=== PATIENT | male | born 1945 | race Caucasian/White ===

== ENCOUNTER 2020-06-09 16:49 | Inpatient (IN) ==
[2020-06-09 20:14] LABS: BILIRUBIN,URINE NEGATIVE (NEGATIVE); BLOOD/HEMOGLOBIN,URINE 3+ (NEGATIVE); GLUCOSE, URINE NEGATIVE (NEGATIVE); KETONES,URINE NEGATIVE (NEGATIVE); LEUKOCYTE ESTERASE ,URINE 1+ (NEGATIVE); NITRITES,URINE NEGATIVE (NEGATIVE); PH,URINE 6.5 (5.0 - 8.0); PROTEIN,URINE 2+ (NEGATIVE); UROBILINOGEN,URINE 1+ (NORMAL)
[2020-06-09 20:17] LABS: APPEARANCE,URINE HAZY (CLEAR); COLOR,URINE YELLOW (YELLOW)
[2020-06-09 20:18] LABS: ABG BASE EXCESS 10.9 mmol/L (-2.0-2.0)
[2020-06-09 20:21] LABS: ABG ALLEN TEST POS; ABG HCO3 37.2 mmol/L (22-26)
[2020-06-09 20:22] LABS: BACTERIA,URINE TRACE /HPF (NEGATIVE); MUCUS,URINE FEW /HPF (NEGATIVE); SQUAMOUS EPITHELIAL CELL,UR RARE /HPF (NEGATIVE)
[2020-06-09] MEDS ORDERED: Atrovent NEB TX 0.02% ONE (20:26)
[2020-06-09 20:38] LABS: BASOPHILS % (AUTO) 0.3 % (0.2-1.0); EOSINOPHILS # (AUTO) 0.3 x10^3/uL (0.0-0.2); EOSINOPHILS % (AUTO) 2.4 % (0.9-2.9); HEMATOCRIT 30.1 % (42.0-54.0); HEMOGLOBIN 9.5 g/dL (13.5-18.0); LYMPHOCYTES # (AUTO) 1.3 X10^3/uL (1.3-2.9); LYMPHOCYTES % (AUTO) 8.6 % (21.0-51.0); MEAN CORPUSCULAR HEMOGLOBIN 27.1 pg (27.0-34.0); MEAN CORPUSCULAR HGB CONC 31.4 g/dL (33.0-35.0); MEAN CORPUSCULAR VOLUME 86.1 fL (80.0-100.0); MEAN PLATELET VOLUME 8.3 fL (7.4-11.0); MONOCYTES # (AUTO) 0.8 x10^3/uL (0.3-0.8); MONOCYTES % (AUTO) 5.7 % (0.0-13.0); NEUTROPHILS # (AUTO) 12.2 x10^3/uL (2.2-4.8); PLATELET COUNT 186 X10^3/uL (150.0-450.0); RED CELL DISTRIBUTION WIDTH 20.7 % (11.6-16.5); WHITE BLOOD COUNT 14.7 X10^3/uL (3.6-10.0)
--- NOTE | 2020-06-09 20:51 | RAD ---
CHEST, 1 VIEWHISTORY: SOBStudy: Single view of the chest.Comparison:February 01, 2020Findings:Cardiomegaly. Mild increase in prominence of bilateral low lung volumes with markedly increased interstitial markings. Osseous structures demonstrate no acute abnormality.IMPRESSION:1. Increased thickening and prominence of patient's bilateral chronic lung disease which may represent a superimposed infection.Electronically signed by: KRISH BARKER (Jun 09, 2020 20:50:22)
[2020-06-09 20:55] LABS: ALANINE AMINOTRANSFERASE 42 Units/L (12-78); ALBUMIN 2.4 g/dL (3.4-5.0); ALKALINE PHOSPHATASE 80 Units/L (46-116); ASPARTATE AMINO TRANSFERASE 29 Units/L (15-37); BLOOD UREA NITROGEN 15 mg/dL (7-18); CALCIUM 8.2 mg/dL (8.5-10.1); CARBON DIOXIDE 34.9 mmol/L (21-32); CHLORIDE 104 mmol/L (98-107); COR CA(FOR HYPOALB) 9.5 mg/dL (8.5-10.1); COR NA(FOR HYPERGLY) 143 mmol/L (136-145); CREATINE KINASE 175 Units/L (39-308); CREATINE KINASE MB 1.8 ng/mL (0-4.0); CREATININE 1.37 mg/dL (0.70-1.30); SODIUM 142 mmol/L (136-145); TOTAL PROTEIN 6.3 g/dL (6.4-8.2); TROPONIN I 0.04 ng/mL (0-1.5); eGFR NON BLACK RACES 54 (>60)
[2020-06-09] MEDS ORDERED: PULMICORT NEB TX 0.5 MG NEB ONE (20:58)
[2020-06-09] MEDS: Atrovent NEB TX 0.02% NEB SCH (20:59)
[2020-06-09] MEDS: PULMICORT NEB TX 0.5 MG NEB SCH (20:59)
[2020-06-09 21:15] LABS: HYPOCHROMASIA SLIGHT; PLATELET MORPHOLOGY COMMENT NORMAL (NORMAL)
[2020-06-09 21:16] LABS: ANISOCYTOSIS 1+; POIKILOCYTOSIS SLIGHT
[2020-06-10] MEDS: Atrovent NEB TX 0.02% NEB SCH ×4 (00:17→16:56)
[2020-06-10] MEDS: ZITHROMAX TAB 250 MG PO SCH ×2 (00:18→21:09)
[2020-06-10] MEDS: ROCEPHIN VIAL 1 GRAM 1 G in NS 100 ML IV + SPIKE MINIBAG* 100 ML IV SCH ×2 (00:18→21:10)
[2020-06-10] MEDS ORDERED: REMERON PO SCH (00:30)
[2020-06-10] MEDS: MELATONIN PO SCH ×2 (00:39→21:08)
[2020-06-10] MEDS: PERCOCET TAB 5/325 MG PO PRN ×3 (00:40→20:14)
[2020-06-10] MEDS ORDERED: PHARMACY CONSULT LTC MEDICATIONS XX SCH (01:00)
[2020-06-10 05:20] LABS: CREATINE KINASE MB 1.1 ng/mL (0-4.0); TROPONIN I 0.05 ng/mL (0-1.5)
[2020-06-10] MEDS: LASIX IVP SCH ×2 (08:39→16:39)
[2020-06-10] MEDS ORDERED: PROTONIX TAB 40 MG PO SCH (09:00)
[2020-06-10] MEDS ORDERED: FOLIC ACID TAB 1 MG PO SCH (09:00)
[2020-06-10] MEDS ORDERED: GUAIFENESIN 1200 MG PO SCH (09:00)
[2020-06-10] MEDS ORDERED: ELIQUIS PO SCH (09:00)
[2020-06-10] MEDS ORDERED: NAMENDA TAB 10 MG PO SCH (09:00)
[2020-06-10] MEDS ORDERED: ARICEPT TAB 10 MG PO SCH (09:00)
[2020-06-10 09:04] LABS: BASOPHILS % (AUTO) 0.1 % (0.2-1.0); EOSINOPHILS # (AUTO) 0.4 x10^3/uL (0.0-0.2); EOSINOPHILS % (AUTO) 3.5 % (0.9-2.9); HEMATOCRIT 28.8 % (42.0-54.0); LYMPHOCYTES # (AUTO) 1.3 X10^3/uL (1.3-2.9); LYMPHOCYTES % (AUTO) 10.6 % (21.0-51.0); MEAN CORPUSCULAR HEMOGLOBIN 26.7 pg (27.0-34.0); MEAN CORPUSCULAR HGB CONC 31.3 g/dL (33.0-35.0); MEAN CORPUSCULAR VOLUME 85.3 fL (80.0-100.0); MEAN PLATELET VOLUME 8.1 fL (7.4-11.0); MONOCYTES % (AUTO) 8.4 % (0.0-13.0); NEUTROPHILS # (AUTO) 9.2 x10^3/uL (2.2-4.8); NEUTROPHILS % (AUTO) 77.4 % (42.0-75.0); PLATELET COUNT 187 X10^3/uL (150.0-450.0); RED BLOOD COUNT 3.38 X10^6/uL (4.7-6.0); RED CELL DISTRIBUTION WIDTH 20.9 % (11.6-16.5); WHITE BLOOD COUNT 11.8 X10^3/uL (3.6-10.0)
[2020-06-10 09:13] LABS: ANISOCYTOSIS 1+; PLATELET MORPHOLOGY COMMENT NORMAL (NORMAL)
[2020-06-10 09:15] LABS: ALANINE AMINOTRANSFERASE 37 Units/L (12-78); ALBUMIN 2.2 g/dL (3.4-5.0); ALKALINE PHOSPHATASE 74 Units/L (46-116); ASPARTATE AMINO TRANSFERASE 23 Units/L (15-37); BLOOD UREA NITROGEN 11 mg/dL (7-18); CALCIUM 8.1 mg/dL (8.5-10.1); CARBON DIOXIDE 35.1 mmol/L (21-32); CHLORIDE 105 mmol/L (98-107); COR CA(FOR HYPOALB) 9.5 mg/dL (8.5-10.1); COR NA(FOR HYPERGLY) 142 mmol/L (136-145); SODIUM 142 mmol/L (136-145); eGFR NON BLACK RACES > 60 (>60)
[2020-06-10] MEDS: PULMICORT NEB TX 0.5 MG NEB SCH ×2 (09:34→20:58)
[2020-06-10 09:40] LABS: ABG BASE EXCESS 12.1 mmol/L (-2.0-2.0)
[2020-06-10 09:41] LABS: ABG HCO3 38.2 mmol/L (22-26)
[2020-06-10 09:42] LABS: HEMOGLOBIN A1C 7.9 %
[2020-06-10] MEDS: ROBITUSSIN DM PO SCH ×4 (09:46→21:10)
[2020-06-10] MEDS: SOLU-Medrol 40 MG VIAL IVP SCH ×3 (09:47→21:08)
[2020-06-10] MEDS: ZESTRIL TAB 5 MG PO SCH (09:47)
--- NOTE | 2020-06-10 09:48 | RAD ---
HISTORYABD DISTENTION, CONSTIPATION, CHEST PAIN HTN, ASTHMA, COPD, HEART SXSTUDYACUTE ABDOMEN SERIESCOMPARISONChest film dated January 27, 2020FINDINGSThe trachea is midline. The cardiac silhouette is enlarged but stable with sternotomy wires from prior surgery.]. Surgical clips are seen along the left heart border and left hilum. [The lungs are clear without focal mass or consolidation. Chronic fibrotic changes are seen left perihilar and right upper lobe without change from January 27, 2020. There is no effusion or pneumothorax.] [The bony thorax is unremarkable]. Surgical clips are also seen in the right axilla.Flat plate and upright evaluation of the abdomen demonstrates a [normal bowel gas pattern]. Moderate stool is seen in the right colon. Surgical clips are seen the right upper quadrant from cholecystectomy. Blood catheter is in place in the bladder there is no pneumoperitoneum. No pathological soft tissue mass or calcification can be observed. The bony structures are grossly intact.IMPRESSION1. [No acute cardiopulmonary disease.] Extensive chronic fibrotic changes right upper lobe left perihilar and left lower lobe stable since January 27, 2020.Prior sternotomy probably CABG surgery with surgical clips as well in the right axilla and left perihilar region.2. [No evidence for acute abdominal pathology identified.] Moderate stool is seen in the right colon without obstruction.Status post cholecystectomy.Electronically signed by: LIZA MORENO (Jun 10, 2020 09:47:25)
[2020-06-10] MEDS: ELIQUIS PO SCH ×2 (09:49→21:12)
[2020-06-10] MEDS: PROTONIX TAB 40 MG PO SCH (09:49)
[2020-06-10] MEDS: FOLIC ACID TAB 1 MG PO SCH (09:49)
[2020-06-10] MEDS: ARICEPT TAB 10 MG PO SCH (09:49)
[2020-06-10] MEDS: NAMENDA TAB 10 MG PO SCH ×2 (09:50→21:11)
--- NOTE | 2020-06-10 12:33 | DR.H&P ---
H&P - History & Physical for Day of: H&P Date: 06/09/20 - Chief Complaint Chief Complaint: CCC, SOB - History of Present Illness History of Present Illness: PT IS 75 WM DIRECT ADMIT FROM LONG TERM WITH CCC, AND SOB. PT HAS DIFFUSE SWELLING TO UPPER AND LOWER EXTREMITIES.PT HAD PMH OF CHF AND WAS IN [facility] 2-3 WEEKS AGO WITH PNEUMONIA. PT STATES HE WAS IN [facility] FOR 5 DAYS AND "NEVER GOT WELL" PT HAS PMH OF COPD, CAD, CHF, HTN, OA. PT DENIES ANY KNOWN COVID EXPOSURE. PT ADMITTED FOR TREATMENT OF ACUTE RESP DISTRESS. - Past Medical History Past Medical History: Arthritis, CHF, Coronary Artery Disease, GERD, Hypertension - Social History Does patient currently use any type of tobacco product: No Have you used tobacco products in the last 12 months: No Type of Tobacco Use: None Does any household member use tobacco: No Alcohol Use: None Drug Use: Prescription Drugs - Medications Home Medications: No Known Drug Allergies Allergy (Verified 06/09/20 22:25) CONTINUE taking the following medications B.[id number].aci-L.joseph-L.plan-L.cindy [Probiotic Formula] 2 cap PO BID 06/10/20 [History] acetaminophen-codeine 1 tab PO Q6H 06/10/20 [History] amlodipine 10 mg PO DAILY 06/10/20 [History] amoxicillin-pot clavulanate [Augmentin] 1 tab PO BID 06/10/20 [History] apixaban [Eliquis] 5 mg PO BID 06/10/20 [History] aspirin 81 mg PO DAILY 06/10/20 [History] atorvastatin 40 mg PO HS 06/10/20 [History] buspirone 15 mg PO TID 06/10/20 [History] cetirizine [Zyrtec] 10 mg PO DAILY 06/10/20 [History] cholecalciferol (vitamin D3) [Vitamin D3] 625 mcg PO DAILY 06/10/20 [History] docusate sodium [Colace] 100 mg PO DAILY 06/10/20 [History] donepezil 10 mg PO DAILY 06/10/20 [History] duloxetine [Cymbalta] 60 mg PO BID 06/10/20 [History] fluoxetine [Prozac] 10 mg PO DAILY 06/10/20 [History] folic acid 1 mg PO DAILY 06/10/20 [History] furosemide [Lasix] 40 mg PO QAM 06/10/20 [History] guaifenesin [Mucinex] 1,200 mg PO BID 06/10/20 [History] ipratropium-albuterol [DuoNeb] 3 ml INHALATION QID 06/10/20 [History] melatonin 3 mg PO HS 06/10/20 [History] memantine 10 mg PO BID 06/10/20 [History] methotrexate sodium 7.5 mg QWEEK 06/10/20 [History] mirtazapine 7.5 mg PO QHS 06/10/20 [History] olanzapine [Zyprexa] 2.5 mg PO DAILY 06/10/20 [History] oxycodone-acetaminophen [Percocet] 1 tab PO Q6H PRN 06/10/20 [History] pantoprazole 40 mg PO DAILY 06/10/20 [History] pregabalin 100 mg PO TID 06/10/20 [History] - Review of Systems Constitutional: Weakness, Malaise Eyes: No Symptoms Reported ENT: No Symptoms Reported Respiratory: Shortness of Breath, SOB with Excertion, Wheezing Cardiovascular: Edema Gastrointestinal: No Symptoms Reported Genitourinary: No Symptoms Reported Musculoskeletal: Back Pain Skin: No Symptoms Reported Neurological: No Symptoms Reported - Physical Exam Vital Signs: Temperature 98.8 F Pulse Rate [Apical] 70 Pulse Rate 63 Respiratory Rate 17 Blood Pressure [Left Arm] 131/70 O2 Sat by Pulse Oximetry 90 Oriented: Normal Eyes: Normal Ear: Normal Nose: Normal Throat: Dry Respiratory: Wheezes Throughout, RLL Diminished, LLL Diminished Cardiovascular: Normal, Edema : Normal Auscultation: Bowel Sounds: Normal Palpation: Other (MILD DIFFUSE DISTENTION) Tenderness: Normal Skin: Decreased Turgur Musculoskeletal: Back:Lumbar Psychiatric: Anxiety Affect: Anxious Speech Pattern: Clear, Appropriate - Assessment/Plan (1) SOB (shortness of breath) Status: Acute Plan: ADMIT, COVID - ON ADMISSION. CXR, ABG, CARDIAC MONITORING. DUO NEBS, SUPPLEMENTAL O2. SPUTUM CULTURE, IV ATBX, STRICT I&OS. IV LASIX, VERIFY HOME MEDICATION (2) CHF (congestive heart failure) Status: Acute (3) COPD (chronic obstructive pulmonary disease) with acute bronchitis Status: Acute (4) Hypertension Status: Acute (5) MICHELLE (generalized anxiety disorder) Status: Acute (6) Osteoarthritis Status: Acute - Allergies Allergies/Adverse Reactions: Allergies Allergy/AdvReac Type Severity Reaction Status Date / Time No Known Drug Allergies Allergy Verified 06/09/20 22:25
[2020-06-10 12:54] LABS: CKMB % 1.1 % (<4); CREATINE KINASE 88 Units/L (39-308); CREATINE KINASE MB < 1.0 ng/mL (0-4.0); TROPONIN I 0.03 ng/mL (0-1.5)
[2020-06-10] MEDS: CYMBALTA PO SCH ×2 (13:07→21:11)
[2020-06-10] MEDS: VITAMIN D3 125 mcg (5,000 UNITS) PO SCH (13:07)
[2020-06-10] MEDS: NORVASC TAB 10 MG PO SCH (13:08)
[2020-06-10] MEDS: ZyrTEC TAB 10 MG PO SCH (13:08)
[2020-06-10] MEDS: ASPIRIN EC 81 MG PO SCH (13:08)
[2020-06-10] MEDS: HEMOCYTE-PLUS PO SCH (13:09)
[2020-06-10] MEDS: BUSPAR PO SCH ×2 (13:12→21:09)
[2020-06-10] MEDS ORDERED: LIPITOR TAB 40 MG PO SCH (21:00)
[2020-06-10] MEDS ORDERED: MELATONIN 3 MG PO SCH ×2 (21:00)
[2020-06-10] MEDS: COLACE CAP 100 MG PO SCH (21:11)
[2020-06-10] MEDS: REMERON PO SCH (21:11)
[2020-06-10] MEDS: LIPITOR TAB 40 MG PO SCH (21:12)
[2020-06-10 21:54] VITALS: BMI 38.2
[2020-06-11] MEDS: Atrovent NEB TX 0.02% NEB SCH ×4 (00:31→17:10)
[2020-06-11 05:06] LABS: BASOPHILS % (AUTO) 0.4 % (0.2-1.0); HEMATOCRIT 29.2 % (42.0-54.0); LYMPHOCYTES # (AUTO) 0.6 X10^3/uL (1.3-2.9); LYMPHOCYTES % (AUTO) 6.3 % (21.0-51.0); MEAN CORPUSCULAR HEMOGLOBIN 26.7 pg (27.0-34.0); MEAN CORPUSCULAR VOLUME 86.1 fL (80.0-100.0); MEAN PLATELET VOLUME 8.5 fL (7.4-11.0); MONOCYTES # (AUTO) 0.3 x10^3/uL (0.3-0.8); NEUTROPHILS # (AUTO) 8.6 x10^3/uL (2.2-4.8); NEUTROPHILS % (AUTO) 90.3 % (42.0-75.0); PLATELET COUNT 198 X10^3/uL (150.0-450.0); RED BLOOD COUNT 3.39 X10^6/uL (4.7-6.0); RED CELL DISTRIBUTION WIDTH 20.8 % (11.6-16.5); WHITE BLOOD COUNT 9.5 X10^3/uL (3.6-10.0)
[2020-06-11 05:18] LABS: ALANINE AMINOTRANSFERASE 31 Units/L (12-78); ALBUMIN 2.2 g/dL (3.4-5.0); ALKALINE PHOSPHATASE 77 Units/L (46-116); ASPARTATE AMINO TRANSFERASE 14 Units/L (15-37); BLOOD UREA NITROGEN 19 mg/dL (7-18); CALCIUM 8.4 mg/dL (8.5-10.1); CARBON DIOXIDE 33.7 mmol/L (21-32); CHLORIDE 105 mmol/L (98-107); COR CA(FOR HYPOALB) 9.8 mg/dL (8.5-10.1); COR NA(FOR HYPERGLY) 148 mmol/L (136-145); SODIUM 144 mmol/L (136-145); TOTAL PROTEIN 6.2 g/dL (6.4-8.2); eGFR NON BLACK RACES 53 (>60)
[2020-06-11 05:45] LABS: ANISOCYTOSIS 1+; HYPOCHROMASIA SLIGHT; PLATELET MORPHOLOGY COMMENT NORMAL (NORMAL)
[2020-06-11] MEDS: MILK OF MAGNESIA PO SCH ×3 (05:54→21:30)
[2020-06-11] MEDS: SOLU-Medrol 40 MG VIAL IVP SCH ×3 (05:57→21:32)
[2020-06-11] MEDS: BUSPAR PO SCH ×3 (05:59→21:31)
[2020-06-11] MEDS: PULMICORT NEB TX 0.5 MG NEB SCH ×2 (09:30→20:40)
[2020-06-11] MEDS: ZyrTEC TAB 10 MG PO SCH (10:13)
[2020-06-11] MEDS: HEMOCYTE-PLUS PO SCH (10:14)
[2020-06-11] MEDS: PROTONIX TAB 40 MG PO SCH (10:14)
[2020-06-11] MEDS: ZESTRIL TAB 5 MG PO SCH (10:14)
[2020-06-11] MEDS: LASIX IVP SCH ×2 (10:14→18:14)
[2020-06-11] MEDS: NAMENDA TAB 10 MG PO SCH ×2 (10:15→21:30)
[2020-06-11] MEDS: FOLIC ACID TAB 1 MG PO SCH (10:15)
[2020-06-11] MEDS: CYMBALTA PO SCH ×2 (10:15→21:28)
[2020-06-11] MEDS: ARICEPT TAB 10 MG PO SCH (10:16)
[2020-06-11] MEDS: VITAMIN D3 125 mcg (5,000 UNITS) PO SCH (10:16)
[2020-06-11] MEDS: NORVASC TAB 10 MG PO SCH (10:16)
[2020-06-11] MEDS: ELIQUIS PO SCH ×2 (10:16→21:29)
[2020-06-11] MEDS: ASPIRIN EC 81 MG PO SCH (10:18)
[2020-06-11] MEDS: ROBITUSSIN DM PO SCH ×4 (10:19→21:31)
[2020-06-11] MEDS: PERCOCET TAB 5/325 MG PO PRN ×2 (12:28→18:15)
--- NOTE | 2020-06-11 13:17 | PCM.PROG ---
Progress Note - Progress Note for Day of Date of Exam: 06/11/20 - Subjective Subjective: PT IS 75 WM DIRECT ADMIT FROM [facility] WITH CCC, AND SOB. PT HAS DIFFUSE SWELLING TO UPPER AND LOWER EXTREMITIES.PT HAD PMH OF CHF AND WAS IN [facility] 2-3 WEEKS AGO WITH PNEUMONIA. PT STATES HE WAS IN [facility] FOR 5 DAYS AND "NEVER GOT WELL" PT HAS PMH OF COPD, CAD, CHF, HTN, OA. PT DENIES ANY KNOWN COVID EXPOSURE. PT ADMITTED FOR TREATMENT OF ACUTE RESP DISTRESS. PT IS CURRENTLY ON IV LASIX AND IV ATBX FOR CHF AND COPD EXACERBATION. PT WBC 11.8, BUN 11, CREAT 1.2. PT DENIES ANY CHEST PAIN THIS AM. - Past Medical Family Social History Past Med/Fam/Surg Hx: No changes since H&P Allergies: Allergies No Known Drug Allergies Allergy (Verified 06/09/20 22:25) - Review of Systems ROS: No change since H&P - Vital Signs and I&O's Vital Signs: Temperature 97.2 F Pulse Rate [Apical] 66 Pulse Rate 67 Respiratory Rate 18 Blood Pressure [Left Arm] 119/74 O2 Sat by Pulse Oximetry 97 Intake and Output: Intake & Output 06/09/20 06/10/20 06/11/20 06/12/20 11:59 11:59 11:59 11:59 Intake Total 125 / 125 1360 / 1360 Output Total 700 / 700 4200 / 4200 Balance -575 / -575 -2840 / -2840 - Physical Exam Oriented: Normal Eyes: Normal Ear: Normal Nose: Normal Throat: Dry Cardiovascular: Normal, Edema : Normal Auscultation: Bowel Sounds: Normal Tenderness: Normal Skin: Decreased Turgur Musculoskeletal: Back:Lumbar Psychiatric: Anxiety Affect: Anxious Speech Pattern: Clear, Appropriate - Laboratory and Diagnostics Result Diagrams: 06/11/20 04:15 06/11/20 04:15 Labs: 06/10/20 09:32 Sputum - Expectorated Sputum Sputum Culture - Preliminary 06/10/20 09:32 Sputum - Expectorated Sputum - Final 06/09/20 20:36 Sputum - Expectorated Sputum Sputum Culture - Preliminary Klebsiella Pneumoniae 06/09/20 20:36 Sputum - Expectorated Sputum - Final 06/09/20 19:58 Urine,Clean Catch Urine Culture - Final Laboratory WBC 9.5 X10^3/uL (3.6-10.0) 06/11/20 04:15 RBC 3.39 X10^6/uL (4.7-6.0) L 06/11/20 04:15 Hgb 9.0 g/dL (13.5-18.0) L 06/11/20 04:15 Hct 29.2 % (42.0-54.0) L 06/11/20 04:15 MCV 86.1 fL (80.0-100.0) 06/11/20 04:15 MCH 26.7 pg (27.0-34.0) L 06/11/20 04:15 MCHC 31.0 g/dL (33.0-35.0) L 06/11/20 04:15 RDW 20.8 % (11.6-16.5) H 06/11/20 04:15 Plt Count 198 X10^3/uL (150.0-450.0) 06/11/20 04:15 Plt Count Comment Adequate (ADEQUATE) 06/11/20 04:15 MPV 8.5 fL (7.4-11.0) 06/11/20 04:15 Neut % (Auto) 90.3 % (42.0-75.0) H 06/11/20 04:15 Lymph % (Auto) 6.3 % (21.0-51.0) L 06/11/20 04:15 Wilcox % (Auto) 3.0 % (0.0-13.0) 06/11/20 04:15 Eos % (Auto) 0.0 % (0.9-2.9) L 06/11/20 04:15 Baso % (Auto) 0.4 % (0.2-1.0) 06/11/20 04:15 Neut # (Auto) 8.6 x10^3/uL (2.2-4.8) H 06/11/20 04:15 Lymph # (Auto) 0.6 X10^3/uL (1.3-2.9) L 06/11/20 04:15 Wilcox # (Auto) 0.3 x10^3/uL (0.3-0.8) 06/11/20 04:15 Eos # (Auto) 0.0 x10^3/uL (0.0-0.2) 06/11/20 04:15 Baso # (Auto) 0.0 X10^3/uL (0.0-0.1) 06/11/20 04:15 Absolute Nucleated RBC 0.1 /100WBC 06/11/20 04:15 Total Counted 100 06/11/20 04:15 Neutrophils % (Manual) 90 % (39-76) H 06/11/20 04:15 Lymphocytes % (Manual) 7 % (13-43) L 06/11/20 04:15 Monocytes % (Manual) 3 % (4-9) L 06/11/20 04:15 Plt Morphology Comment Normal (NORMAL) 06/11/20 04:15 RBC Morphology Abnormal (NORMAL) 06/11/20 04:15 Hypochromasia Slight A 06/11/20 04:15 Poikilocytosis Slight A 06/09/20 20:22 Anisocytosis 1+ A 06/11/20 04:15 Sample Site Left brachial 06/10/20 09:32 ABG pH 7.450 (7.35-7.45) 06/10/20 09:32 ABG pCO2 55.0 mmHg (35.0-45.0) H* 06/10/20 09:32 ABG pO2 57.0 mmHg (80.0-100.0) L 06/10/20 09:32 ABG HCO3 38.2 mmol/L (22-26) H* 06/10/20 09:32 ABG O2 Saturation 91.0 % (90-100) 06/10/20 09:32 ABG Base Excess 12.1 mmol/L (-2.0-2.0) H 06/10/20 09:32 Alex Test Na 06/10/20 09:32 A-a Gradient 102.0 mmHg 06/10/20 09:32 FiO2 32.0 06/10/20 09:32 Blood Gas Comments Luisana well aw 06/10/20 09:32 Sodium 144 mmol/L (136-145) 06/11/20 04:15 Corrected Sodium 148 mmol/L (136-145) H 06/11/20 04:15 Potassium 4.1 mmol/L (3.5-5.1) 06/11/20 04:15 Chloride 105 mmol/L (98-107) 06/11/20 04:15 Carbon Dioxide 33.7 mmol/L (21-32) H 06/11/20 04:15 BUN 19 mg/dL (7-18) H 06/11/20 04:15 Creatinine 1.40 mg/dL (0.70-1.30) H 06/11/20 04:15 Est GFR (MDRD) Af Amer > 60 (>60) 06/11/20 04:15 Est GFR (MDRD) Non-Af 53 (>60) L 06/11/20 04:15 Glucose 253 mg/dL (65-99) H 06/11/20 04:15 Hemoglobin A1c 7.9 % 06/10/20 08:39 Calcium 8.4 mg/dL (8.5-10.1) L 06/11/20 04:15 Corrected Calcium 9.8 mg/dL (8.5-10.1) 06/11/20 04:15 Iron 24 ug/dL (50-175) L 06/10/20 08:39 Transferrin 217 mg/dL (202-364) 06/10/20 08:39 Ferritin 106 ng/mL (26-388) 06/10/20 08:39 Total Bilirubin 0.40 mg/dL (0.2-1.0) 06/11/20 04:15 AST 14 Units/L (15-37) L 06/11/20 04:15 ALT 31 Units/L (12-78) 06/11/20 04:15 Alkaline Phosphatase 77 Units/L (46-116) 06/11/20 04:15 Creatine Kinase 88 Units/L (39-308) 06/10/20 12:24 CK-MB (CK-2) < 1.0 ng/mL (0-4.0) 06/10/20 12:24 CK/CKMB % Calc 1.1 % (<4) 06/10/20 12:24 Troponin I 0.03 ng/mL (0-1.5) 06/10/20 12:24 B-Natriuretic Peptide 147 pg/mL (0-79) H 06/10/20 08:39 Total Protein 6.2 g/dL (6.4-8.2) L 06/11/20 04:15 Albumin 2.2 g/dL (3.4-5.0) L 06/11/20 04:15 Globulin 4.0 g/dL (2.5-4.5) 06/11/20 04:15 Albumin/Globulin Ratio 0.6 Ratio (1.1-2.1) L 06/11/20 04:15 Vitamin B12 810 pg/mL (193-986) 06/10/20 08:39 Folate 16.8 ng/mL (>8.6) 06/10/20 08:39 Specimen Type Catherized urine 06/09/20 19:58 Urine Color Yellow (YELLOW) 06/09/20 19:58 Urine Appearance Hazy (CLEAR) 06/09/20 19:58 Urine pH 6.5 (5.0 - 8.0) 06/09/20 19:58 Ur Specific [place] 1.015 (1.000-1.030) 06/09/20 19:58 Urine Protein 2+ (NEGATIVE) 06/09/20 19:58 Urine Glucose (UA) Negative (NEGATIVE) 06/09/20 19:58 Urine Ketones Negative (NEGATIVE) 06/09/20 19:58 Urine Occult Blood 3+ (NEGATIVE) 06/09/20 19:58 Urine Nitrite Negative (NEGATIVE) 06/09/20 19:58 Urine Bilirubin Negative (NEGATIVE) 06/09/20 19:58 Urine Urobilinogen 1+ (NORMAL) 06/09/20 19:58 Ur Leukocyte Esterase 1+ (NEGATIVE) 06/09/20 19:58 Urine RBC 3-5 /HPF (0-3) A 06/09/20 19:58 Urine WBC 3-5 /HPF (0-5) 06/09/20 19:58 Ur Squamous Epith Cells Rare /HPF (NEGATIVE) 06/09/20 19:58 Urine Bacteria Trace /HPF (NEGATIVE) 06/09/20 19:58 Urine Mucus Few /HPF (NEGATIVE) 06/09/20 19:58 Ur Culture Indicated? Yes/culture set up 06/09/20 19:58 SARS CoV-2 RNA Rapid MURALI Negative (NEGATIVE) 06/09/20 19:58 - Plan (1) SOB (shortness of breath) Status: Acute Plan: COVID - ON ADMISSION. CXR, ABG, CARDIAC MONITORING. DUO NEBS, SUPPLEMENTAL O2. SPUTUM CULTURE, IV ATBX, STRICT I&OS. IV LASIX, VERIFY HOME MEDICATION, ECHO (2) CHF (congestive heart failure) Status: Acute (3) COPD (chronic obstructive pulmonary disease) with acute bronchitis Status: Acute (4) Hypertension Status: Acute (5) MICHELLE (generalized anxiety disorder) Status: Acute (6) Osteoarthritis Status: Acute
[2020-06-11] MEDS: COLACE CAP 100 MG PO SCH (21:28)
[2020-06-11] MEDS: LIPITOR TAB 40 MG PO SCH (21:29)
[2020-06-11] MEDS: MELATONIN PO SCH (21:29)
[2020-06-11] MEDS: REMERON PO SCH (21:30)
[2020-06-11] MEDS: ROCEPHIN VIAL 1 GRAM 1 G in NS 100 ML IV + SPIKE MINIBAG* 100 ML IV SCH (21:31)
[2020-06-11] MEDS: ZITHROMAX TAB 250 MG PO SCH (21:31)
[2020-06-12] MEDS: Atrovent NEB TX 0.02% NEB SCH ×4 (01:06→17:04)
[2020-06-12 05:28] LABS: BASOPHILS % (AUTO) 0.1 % (0.2-1.0); HEMATOCRIT 29.7 % (42.0-54.0); HEMOGLOBIN 9.2 g/dL (13.5-18.0); LYMPHOCYTES # (AUTO) 0.5 X10^3/uL (1.3-2.9); LYMPHOCYTES % (AUTO) 5.3 % (21.0-51.0); MEAN CORPUSCULAR HEMOGLOBIN 26.8 pg (27.0-34.0); MEAN CORPUSCULAR VOLUME 86.5 fL (80.0-100.0); MEAN PLATELET VOLUME 8.2 fL (7.4-11.0); MONOCYTES # (AUTO) 0.4 x10^3/uL (0.3-0.8); MONOCYTES % (AUTO) 4.2 % (0.0-13.0); NEUTROPHILS % (AUTO) 90.4 % (42.0-75.0); PLATELET COUNT 216 X10^3/uL (150.0-450.0); RED BLOOD COUNT 3.43 X10^6/uL (4.7-6.0); RED CELL DISTRIBUTION WIDTH 20.9 % (11.6-16.5); WHITE BLOOD COUNT 9.9 X10^3/uL (3.6-10.0)
[2020-06-12] MEDS: BUSPAR PO SCH ×3 (05:39→21:29)
[2020-06-12] MEDS: SOLU-Medrol 40 MG VIAL IVP SCH ×3 (05:40→21:30)
[2020-06-12 05:48] LABS: ALANINE AMINOTRANSFERASE 33 Units/L (12-78); ALBUMIN 2.3 g/dL (3.4-5.0); ALKALINE PHOSPHATASE 86 Units/L (46-116); ASPARTATE AMINO TRANSFERASE 15 Units/L (15-37); BLOOD UREA NITROGEN 26 mg/dL (7-18); CALCIUM 8.4 mg/dL (8.5-10.1); CARBON DIOXIDE 33.5 mmol/L (21-32); CHLORIDE 105 mmol/L (98-107); COR CA(FOR HYPOALB) 9.8 mg/dL (8.5-10.1); COR NA(FOR HYPERGLY) 149 mmol/L (136-145); CREATININE 1.32 mg/dL (0.70-1.30); SODIUM 144 mmol/L (136-145); TOTAL PROTEIN 6.3 g/dL (6.4-8.2); eGFR NON BLACK RACES 56 (>60)
[2020-06-12] MEDS: PERCOCET TAB 5/325 MG PO PRN ×2 (06:13→14:11)
[2020-06-12 06:14] LABS: ANISOCYTOSIS 1+; HYPOCHROMASIA SLIGHT; PLATELET MORPHOLOGY COMMENT NORMAL (NORMAL)
[2020-06-12] MEDS: FOLIC ACID TAB 1 MG PO SCH (08:32)
[2020-06-12] MEDS: PROTONIX TAB 40 MG PO SCH (08:33)
[2020-06-12] MEDS: ASPIRIN EC 81 MG PO SCH (08:33)
[2020-06-12] MEDS: ZyrTEC TAB 10 MG PO SCH (08:33)
[2020-06-12] MEDS: NORVASC TAB 10 MG PO SCH (08:33)
[2020-06-12] MEDS: ROBITUSSIN DM PO SCH ×4 (08:34→21:29)
[2020-06-12] MEDS: ZESTRIL TAB 5 MG PO SCH (08:35)
[2020-06-12] MEDS: ELIQUIS PO SCH ×2 (08:35→21:28)
[2020-06-12] MEDS: CYMBALTA PO SCH ×2 (08:36→21:28)
[2020-06-12] MEDS: ARICEPT TAB 10 MG PO SCH (08:36)
[2020-06-12] MEDS: VITAMIN D3 125 mcg (5,000 UNITS) PO SCH (08:37)
[2020-06-12] MEDS: HEMOCYTE-PLUS PO SCH (08:37)
[2020-06-12] MEDS: NAMENDA TAB 10 MG PO SCH ×2 (08:39→21:28)
[2020-06-12] MEDS: MILK OF MAGNESIA PO SCH ×2 (08:42→21:28)
[2020-06-12] MEDS: LASIX IVP SCH ×2 (08:49→17:55)
[2020-06-12] MEDS ORDERED: BUTT CREAM (COMPOUND) ONE (08:55)
[2020-06-12] MEDS: PULMICORT NEB TX 0.5 MG NEB SCH ×2 (09:13→20:30)
--- NOTE | 2020-06-12 10:12 | RAD ---
PROCEDURE: Chest X-ray 1 View .HISTORY: Short of breath and congestive heart failure.TECHNIQUE: AP portable view done at 9:28 a.m..COMPARISON: 06/09/2020.TECHNICAL QUALITY: Satisfactory .FINDINGS:Heart size upper limits of normal and unchanged with previous sternotomy.Unremarkable mediastinum and hilar regions.Continued consolidation left lung field with improvement compared to previous study consistent with improving pneumonia. Continued chronic interstitial markings bilaterally. No pleural fluid or pneumothorax.IMPRESSION:1. Improving pneumonia on the left.2. Unchanged fibrotic changes bilaterally.Electronically signed by: Angel Burrell (Jun 12, 2020 10:10:35)
[2020-06-12] MEDS ORDERED: NS 100 ML IV 100 ML IV ONE (14:46)
[2020-06-12] MEDS: ZYVOX 600MG IV 600 MG/300 ML BAG IV SCH ×2 (14:52→21:29)
[2020-06-12] MEDS ORDERED: LEVSIN/MAALOX/LIDOC VISC PO PRN (15:31)
[2020-06-12] MEDS: DIFLUCAN 100 MG IV (MIX by PHARMACY)* 100 MG/50 ML BAG IV SCH (16:31)
[2020-06-12 16:56] LABS: CKMB % 2.2 % (<4); CREATINE KINASE 46 Units/L (39-308); CREATINE KINASE MB < 1.0 ng/mL (0-4.0); TROPONIN I < 0.02 ng/mL (0-1.5)
[2020-06-12] MEDS: ZOVIRAX TOP SCH (17:55)
[2020-06-12] MEDS: COLACE CAP 100 MG PO SCH (21:28)
[2020-06-12] MEDS: LIPITOR TAB 40 MG PO SCH (21:28)
[2020-06-12] MEDS: MELATONIN PO SCH (21:28)
[2020-06-12] MEDS: REMERON PO SCH (21:29)
[2020-06-12] MEDS: ZITHROMAX TAB 250 MG PO SCH (21:29)
[2020-06-12] MEDS: ROCEPHIN VIAL 1 GRAM 1 G in NS 100 ML IV + SPIKE MINIBAG* 100 ML IV SCH (21:29)
[2020-06-13] MEDS: Atrovent NEB TX 0.02% NEB SCH ×2 (00:07→05:42)
[2020-06-13] MEDS: ZOVIRAX TOP SCH ×2 (01:35→10:00)
[2020-06-13 05:26] LABS: BASOPHILS % (AUTO) 0.1 % (0.2-1.0); HEMATOCRIT 33.7 % (42.0-54.0); HEMOGLOBIN 10.3 g/dL (13.5-18.0); LYMPHOCYTES # (AUTO) 0.4 X10^3/uL (1.3-2.9); LYMPHOCYTES % (AUTO) 5.3 % (21.0-51.0); MEAN CORPUSCULAR HEMOGLOBIN 26.5 pg (27.0-34.0); MEAN CORPUSCULAR HGB CONC 30.4 g/dL (33.0-35.0); MEAN CORPUSCULAR VOLUME 87.1 fL (80.0-100.0); MEAN PLATELET VOLUME 8.4 fL (7.4-11.0); MONOCYTES # (AUTO) 0.5 x10^3/uL (0.3-0.8); MONOCYTES % (AUTO) 6.2 % (0.0-13.0); NEUTROPHILS # (AUTO) 6.8 x10^3/uL (2.2-4.8); NEUTROPHILS % (AUTO) 88.4 % (42.0-75.0); PLATELET COUNT 233 X10^3/uL (150.0-450.0); RED BLOOD COUNT 3.87 X10^6/uL (4.7-6.0); RED CELL DISTRIBUTION WIDTH 21.5 % (11.6-16.5); WHITE BLOOD COUNT 7.7 X10^3/uL (3.6-10.0)
[2020-06-13] MEDS: BUSPAR PO SCH (05:32)
[2020-06-13] MEDS: SOLU-Medrol 40 MG VIAL IVP SCH (05:33)
[2020-06-13 05:38] LABS: ALBUMIN 2.6 g/dL (3.4-5.0); CALCIUM 8.7 mg/dL (8.5-10.1); CARBON DIOXIDE 33.4 mmol/L (21-32); COR CA(FOR HYPOALB) 9.8 mg/dL (8.5-10.1); CREATININE 1.47 mg/dL (0.70-1.30)
[2020-06-13 05:48] LABS: ANISOCYTOSIS 1+; HYPOCHROMASIA SLIGHT; PLATELET MORPHOLOGY COMMENT NORMAL (NORMAL)
[2020-06-13] MEDS: PERCOCET TAB 5/325 MG PO PRN (08:28)
[2020-06-13] MEDS: ZYVOX 600MG IV 600 MG/300 ML BAG IV SCH (08:29)
[2020-06-13] MEDS: ARICEPT TAB 10 MG PO SCH (08:29)
[2020-06-13] MEDS: MILK OF MAGNESIA PO SCH (08:29)
[2020-06-13] MEDS: ZyrTEC TAB 10 MG PO SCH (08:29)
[2020-06-13] MEDS: ASPIRIN EC 81 MG PO SCH (08:30)
[2020-06-13] MEDS: CYMBALTA PO SCH (08:30)
[2020-06-13] MEDS: ZESTRIL TAB 5 MG PO SCH (08:30)
[2020-06-13] MEDS: ELIQUIS PO SCH (08:30)
[2020-06-13] MEDS: HEMOCYTE-PLUS PO SCH (08:31)
[2020-06-13] MEDS: NORVASC TAB 10 MG PO SCH (08:31)
[2020-06-13] MEDS: PROTONIX TAB 40 MG PO SCH (08:31)
[2020-06-13] MEDS: FOLIC ACID TAB 1 MG PO SCH (08:31)
[2020-06-13] MEDS: NAMENDA TAB 10 MG PO SCH (08:32)
[2020-06-13] MEDS: LASIX IVP SCH (08:32)
[2020-06-13] MEDS: ROBITUSSIN DM PO SCH ×2 (08:33→13:35)
[2020-06-13] MEDS: PULMICORT NEB TX 0.5 MG NEB SCH (08:49)
[2020-06-13] MEDS: VITAMIN D3 125 mcg (5,000 UNITS) PO SCH (09:30)
[2020-06-13 13:23] VITALS: BP 144/67
[2020-06-13] MEDS: DIFLUCAN 100 MG IV (MIX by PHARMACY)* 100 MG/50 ML BAG IV SCH (13:34)
== END 2020-06-13 14:15 | DRG 178 ==
LOC: MED/SURG → OBSVTOIN 19:18
PROVIDERS: ADMIT Internal Medicine; ATTEND Internal Medicine
DX: J15.211 Pneumonia due to Methicillin susceptible Staphylococcus aureus; M19.90 Unspecified osteoarthritis, unspecified site; Z20.822 Contact with and (suspected) exposure to COVID-19; I50.9 Heart failure, unspecified; I11.0 Hypertensive heart disease with heart failure; R94.31 Abnormal electrocardiogram [ECG] [EKG]; R06.02 Shortness of breath; J44.1 Chronic obstructive pulmonary disease with (acute) exacerbation; J15.0 Pneumonia due to Klebsiella pneumoniae; I25.10 Atherosclerotic heart disease of native coronary artery without angina pectoris; R60.0 Localized edema; R53.1 Weakness; F41.8 Other specified anxiety disorders; K21.9 Gastro-esophageal reflux disease without esophagitis; R26.89 Other abnormalities of gait and mobility